=== PATIENT | male | born 1995 | race African-American/Black ===

== ENCOUNTER 2016-07-19 14:39 | Emergency (ER) | payer BC ==
[~2016-07-19] VITALS: Ht 182.9 cm; Wt 77.1 kg
[2016-07-19 15:09] VITALS: BP 107/65
== END 2016-07-19 16:30 | disposition home or self-care (01) ==
LOC: ER 14:43
DX: J06.9 Acute upper respiratory infection, unspecified (principal)
CPT/HCPCS: A4606; Z7610

== ENCOUNTER 2020-06-30 01:22 | Emergency (ER) | payer BC ==
[~2020-06-30] VITALS: Ht 180.3 cm; Wt 79.4 kg
--- NOTE | 2020-06-30 01:35 | NUR ---
PT BIBLAPD AND RA C/O SUICIDAL IDEATION. PT AAOX4 BREATHING EVENLY AND UNLABORED. PT THOUGHTS DISORDERED AND KEPT REFFERING TO "I NEED DXM TO SURVIVE. IM AN ADDICT WHO IS SOBER. I NEED DXM" PT HAS A COVERED WOUND ON LEFT FORARM. PT UNWILLING TO LET ANYONE UNBANDAGE HIS ARM FOR WOUND CARE; UNABLE TO ASSESS. PT HAS SCRAPE AND DRIED BLOOD ON RIGHT SIDE OF FACE. PT ATTACHED TO MONITOR AND POX. PT GIVEN BLANKET AND CALL LIGHT WITHIN REACH.
[2020-06-30 01:58] LABS: BASOPHILS # (AUTO) 0.2 /CMM (0.0-0.2); BASOPHILS % (AUTO) 3.3 % (0.0-2.0); EOSINOPHILS % (AUTO) 2.8 % (0.0-6.0); HEMATOCRIT 42 % (39-51); HEMOGLOBIN 13.9 g/dL (13.5-17.5); LYMPHOCYTES # (AUTO) 1.6 /CMM (0.8-4.8); LYMPHOCYTES % (AUTO) 23.8 % (20.0-44.0); MEAN CORPUSCULAR HGB CONC 33 g/dl (31.0-36.0); MEAN CORPUSCULAR VOLUME 86 fL (80-96); MONOCYTES # (AUTO) 0.3 /CMM (0.1-1.30); MONOCYTES % (AUTO) 4.7 % (2.0-12.0); NEUTROPHILS # (AUTO) 4.4 /CMM (1.8-8.9); NEUTROPHILS % (AUTO) 65.4 % (43.0-81.0); PLATELET COUNT (AUTO) 306 /CMM (150-450); RED BLOOD CELL COUNT(AUTO) 4.83 MIL/uL (4.5-6.0); WHITE BLOOD COUNT (AUTO) 6.7 K/uL (4.3-11.0)
[2020-06-30 02:19] LABS: ALANINE AMINOTRANSFERASE 24 U/L (12-78); ALCOHOL, BLOOD < 3 mg/dL (0-0); ALKALINE PHOSPHATASE 102 U/L (46-116); ASPARTATE AMINOTRANSFERASE 21 U/L (15-37); BILIRUBIN,DIRECT 0.1 mg/dL (0.0-0.2); BILIRUBIN,TOTAL 0.2 mg/dL (0.2-1.0); CALCIUM, SERUM 8.8 mg/dL (8.5-10.1); CARBON DIOXIDE 26 mmol/L (21-32); CHLORIDE 103 mmol/L (98-107); CREATININE 1.1 mg/dL (0.6-1.3); GLUCOSE 112 mg/dL (74-106); POTASSIUM 3.8 mmol/L (3.5-5.1); SODIUM SERUM 138 mmol/L (136-145); TOTAL PROTEIN, SERUM 7.2 g/dL (6.4-8.2); UREA NITROGEN, BLOOD 15 mg/dL (7-18)
[2020-06-30 02:23] LABS: ACETAMINOPHEN 0 ug/ml (10-30)
[2020-06-30] MEDS ORDERED: diphenhydrAMINE HCL 50 MG/ML VIAL ONE (03:01)
[2020-06-30] MEDS ORDERED: LORAZEPAM INJ 2 MG/ML VIAL ONE (03:01)
[2020-06-30] MEDS ORDERED: HALOPERIDOL LACTATE INJ 5 MG/ML VIAL ONE (03:01)
--- NOTE | 2020-06-30 03:18 | NUR ---
pt uncooperative, pacing around the hallway, refusing to listen to er staff, verbally abusive. er md made aware with order to place pt on restraints if needed. er staff attempted de-escalate pt with multiple attempts with unsuccessful results. Security was called to bedside, sitter still at bedside. pt remains uncooperative and became physically agressive kicking and throwing punches towards er staff members. pt assisted back to bed, place pt on bilateral wrist restraints. will medicate pt as ordered by er md.
[2020-06-30] MEDS ORDERED: diphenhydrAMINE HCL 50 MG/ML VIAL IM ONE (04:00)
[2020-06-30] MEDS ORDERED: LORAZEPAM INJ 2 MG/ML VIAL IM ONE (04:00)
[2020-06-30] MEDS ORDERED: HALOPERIDOL LACTATE INJ 5 MG/ML VIAL IM ONE (04:00)
--- NOTE | 2020-06-30 05:32 | NUR ---
per lab, covid negative
[2020-06-30] MEDS ORDERED: LIDOCAINE 2% JEL UROJET 10 ML MM ONE (05:35)
--- NOTE | 2020-06-30 05:42 | NUR ---
urine obtained and sent to lab
[2020-06-30 06:06] LABS: BILIRUBIN,URINE NEGATIVE (NEGATIVE); COLOR,URINE YELLOW (YELLOW); LEUKOCYTE ESTERASE ,URINE NEGATIVE (NEGATIVE); NITRITE, URINE NEGATIVE (NEGATIVE); PROTEIN,URINE TRACE mg/dl (NEGATIVE); UGLUCOSE NEGATIVE (NEGATIVE); UROBILINOGEN,URINE 0.2 EU/dL (0.2)
--- NOTE | 2020-06-30 07:05 | NUR ---
endorsed to KARLOS Banda for peterson
[2020-06-30 07:41] LABS: BACTERIA,URINE None seen /HPF (None Seen); RBC,URINE NONE SEEN /HPF (0-2); SQUAMOUS EPITHELIAL CELL,UR Few /HPF (None Seen); WBC,URINE NONE SEEN /HPF (0-3)
--- NOTE | 2020-06-30 09:00 | NUR ---
Patient asleep easily arousable, no distress noted, needs attended, kept comfortable.
--- NOTE | 2020-06-30 11:50 | NUR ---
faxed clinicals to [facility].
--- NOTE | 2020-06-30 12:00 | NUR ---
Social Service Consult: social worker health services consult requested for patient on a 5150 hold. Patient is a 24-year-old, male. SW met with the patient at his hospital bed on the emergency unit. Patient is alert and oriented x4. Patient presented lethargic. Patient has cuts on his face and arms. Patient is ambulatory. SW asked the patient about the cuts on his face and arms. Patient stated that he was feeling depressed and cut himself with a knife. Patient denied any current thoughts of suicide or homicide. SW asked the patient if he is taking any psychiatric medications and patient stated that he is currently taking Seroquel. SW asked the patient about his prior living arrangements. Patient was able to verbalize [facility] and [facility]. Patient also stated he was living at a sober living facility. Patient stated he would like to return to the sober living facility and mentioned [facility]. PLAN: SW was unable to complete evaluation at this time as patient is lethargic. social worker health services will follow up with the patient at a later time to discuss discharge plans. adventure therapist will be contacted, as patient is currently on a 5150 hold.
--- NOTE | 2020-06-30 12:24 | NUR ---
ADRIEN CALLED FROM [facility] WILL CALL US IN 45 MINS FOR BED.
--- NOTE | 2020-06-30 13:00 | NUR ---
Patient asleep, in no distress, easily arousable. Kept comfortable. 1:1 Sitter at bedside.
--- NOTE | 2020-06-30 13:52 | NUR ---
FERMIN CALLED PT ACCEPTED TO [facility] [address] BED NOT AVAILABLE UNTIL 1600 CALL [phone] X [phone]
--- NOTE | 2020-06-30 14:00 | NUR ---
CALLED [facility] [phone] ASKED FOR ETA OF 2340
--- NOTE | 2020-06-30 16:52 | NUR ---
RECEIVED A CALL FROM [facility], PATIENT IS DECLINED. DUE TO PATIENT BEING TOO AGGRESSIVE.
--- NOTE | 2020-06-30 17:10 | NUR ---
PATIENT AWAKE, ALERT AND ORIENTEDX4, CALM AND COOPERATIVE. ORDERED FOOD TRAY FOR THE PATIENT.
--- NOTE | 2020-06-30 17:10 | NUR ---
[facility] DENIED ACCEPTANCE. :(
--- NOTE | 2020-06-30 18:08 | NUR ---
Face sheet and clinicals faxed to [facility] [phone]
--- NOTE | 2020-06-30 21:11 | NUR ---
3959 HOLD FAXED TO [facility] REQUESTED BY NELSON (INTAKE).
--- NOTE | 2020-06-30 21:32 | NUR ---
TRANSFER INFORMATION: PT ACCEPTED AT [facility] ACCEPTING MD CAR PT WILL GO TO ITU UNIT PHONE# FOR REPORT [facility] ETA 2309
--- NOTE | 2020-06-30 22:34 | NUR ---
Yanni morales in [facility] - 06/30/20 at 2237 by MERRICK REPORT GIVEN TO KARLOS HANKS
--- NOTE | 2020-06-30 22:34 | NUR ---
REPORT GIVEN TO KARLOS HANKS FOR ALEX AT THE [facility] FOR ALEX
[2020-06-30 22:36] VITALS: BP 127/71
--- NOTE | 2020-06-30 22:36 | NUR ---
[facility] AT BEDSIDE FOR TRANSPORT TO [facility]. REPORT GIVEN TO EMT. PT IS IN STABLE CONDITION FOR TRANSPORT.
--- NOTE | 2020-06-30 22:47 | NUR ---
PT LEFT ON GURNEY WITH 2 AMBULANCE STAFF. PT IS IN STABLE CONDITION FOR TRANSPORT.
== END 2020-06-30 22:48 ==
LOC: ER 01:24
DX: R45.851 Suicidal ideations (principal); S51.812A Laceration without foreign body of left forearm, initial encounter; S51.811A Laceration without foreign body of right forearm, initial encounter; X78.9XXA Intentional self-harm by unspecified sharp object, initial encounter; Y92.89 Other specified places as the place of occurrence of the external cause; R45.1 Restlessness and agitation; Z20.822 Contact with and (suspected) exposure to COVID-19
CPT/HCPCS: 36415; 80048; 80076; 80299; 80307; 80320; 81001; 85025; 87426; 96372 ×2; 99285; A4349; A6403; C9803; J1200; J1630; J2060; J3490; G0480